=== PATIENT | female | born 1995 | race Two or more races ===

== ENCOUNTER 2019-04-17 20:07 | Emergency (ER) | payer OTHER ==
[2019-04-17 20:20] VITALS: BP 128/74
[2019-04-17] MEDS ORDERED: Ciprofloxacin 0.3% OPTH.SOL* BTL BOTH EYES ONE (20:34)
--- NOTE | 2019-04-17 20:45 | UC ---
Eye Complaint HPI - HPI Summary HPI Summary: 1 WEEK OF COUGH AND CONGESTION. THIS IS MILDLY IMPROVING BUT TODAY WOKE UP WITH RIGHT EYE REDNESS AND IRRITATION. TOOK AN AFTERNOON NAP AND WHEN SHE WOKE UP BOTH EYES WERE RED AND IRRITATED AND CRUSTED SHUT. NO VISUAL DISTURBANCE. NO FEVER. NO HEADACHE. - History of Current Complaint Chief Complaint: UCRespiratory Stated Complaint: URI Time Seen by Provider: 04/17/19 20:13 Hx Obtained From: Patient Hx Last Menstrual Period: <1 week ago Onset/Duration: Sudden Onset, Lasting Hours, Still Present Timing: Constant Severity Initially: Moderate Severity Currently: Moderate Pain Intensity: 2 Pain Scale Used: 0-10 Numeric Location of Injury: Conjunctiva Aggravating Factor(s): Blinking Alleviating Factor(s): Nothing Associated Signs And Symptoms: Positive: Drainage (Clear). Negative: Photophobia, Drainage (Purulent), Vision Impairment Bilateral - Allergies/Home Medications Allergies/Adverse Reactions: Allergies Allergy/AdvReac Type Severity Reaction Status Date / Time No Known Allergies Allergy Verified 04/17/19 20:20 Home Medications: Home Medications Ibuprofen TAB* [Advil TAB*] 400 mg PO ONCE PRN 04/17/19 [History Confirmed 04/17] PMH/Surg Hx/FS Hx/Imm Hx - Additional Past Medical History Additional PMH: LUPUS - Surgical History Surgical History: Yes Surgery Procedure, Year, and Place: kidney biopsy - Family History Known Family History: Positive: Non-Contributory - Social History Alcohol Use: Occasionally Alcohol Amount: 1x per month Substance Use Type: None Smoking Status (MU): Never Smoked Tobacco Review of Systems All Other Systems Reviewed And Are Negative: Yes Constitutional: Positive: Negative Skin: Positive: Negative Eyes: Positive: Drainage, Eye Redness ENT: Positive: Nasal Discharge Respiratory: Positive: Cough Cardiovascular: Positive: Negative Gastrointestinal: Positive: Negative Physical Exam Triage Information Reviewed: Yes Appearance: Well-Appearing, No Pain Distress, Well-Nourished Vital Signs: Initial Vital Signs Temp 98.8 F 04/17/19 20:15 Pulse 91 04/17/19 20:15 Resp 16 04/17/19 20:15 BP 128/74 04/17/19 20:15 Pulse Ox 100 04/17/19 20:15 Vital Signs Reviewed: Yes Eyes: Positive: Conjunctiva Inflamed - BILATERAL, Other: - PERRL, EOMI. Negative: Discharge ENT: Positive: Hearing grossly normal, Pharynx normal, TMs normal Neck: Positive: Supple, Nontender, No Lymphadenopathy Respiratory Exam: Normal Cardiovascular Exam: Normal Abdomen Description: Positive: Soft Musculoskeletal: Positive: No Edema Neurological: Positive: Alert Psychological: Positive: Age Appropriate Behavior Skin: Negative: Rashes Eye Complaint Course/Dx - Course Course Of Treatment: WILL TREAT BILATERAL CONJUNCTIVITIS WITH ANTIBIOTIC EYEDROPS. PATIENT STATES HER RESPIRATORY SYMPTOMS ARE IMPROVING OVERALL ALTHOUGH THE COUGH SEEMS WORSE TODAY. SHE ADMITS TO PULLING AN ALL NIGHTER LAST NIGHT AND THINKS IF SHE JUST GETS MORE REST SHE WILL LIKELY CONTINUE TO IMPROVE. OFFERED ANTIBIOTICS GIVEN THAT SHE IS IMMUNOSUPPRESSED DUE TO TAKING PLAQUENIL FOR HER LUPUS BUT THE PATIENT WOULD LIKE TO TRY CAREFUL OBSERVATION AT HOME FOR NOW TO AVOID TAKING UNNECESSARY MEDICATIONS. SHE WILL CALL ME HERE IN THE URGENT CARE ON SATURDAY OR SATURDAY IF HER SYMPTOMS ARE NOT IMPROVING EXPECTED. - Differential Dx/Diagnosis Provider Diagnosis: Bilateral conjunctivitis, Upper respiratory infection Discharge ED - Sign-Out/Discharge Documenting (check all that apply): Patient Departure All imaging exams completed and their final reports reviewed: No Studies - Discharge Plan Condition: Stable Disposition: HOME Patient Education Materials: Upper Respiratory Infection (ED), Conjunctivitis ( ED) Referrals: Lio Ruiz MD [Primary Care Provider] - If Needed Additional Instructions: YOUR RESPIRATORY SYMPTOMS ARE LIKELY VIRALLY MEDIATED AND SHOULD RESOLVE ON THEIR OWN WITH TIME. NO INDICATION FOR ANTIBIOTICS AT PRESENT. REST, HYDRATE, OTC MEDS NEEDED. WILL TREAT YOUR CONJUNCTIVITIS WITH ANTIBIOTIC EYEDROPS. SEEK FOLLOW-UP IF YOU ARE NOT IMPROVING EXPECTED. - Billing Disposition and Condition Condition: STABLE Disposition: Home
== END 2019-04-17 20:50 | disposition home or self-care (01) ==
LOC: UCEAST 20:07
DX: J06.9 Acute upper respiratory infection, unspecified (principal); H10.9 Unspecified conjunctivitis; M32.9 Systemic lupus erythematosus, unspecified
CPT/HCPCS: 99212; A9270-GY; G0463